=== PATIENT | female | born 1955 | race Two or more races ===

== ENCOUNTER 2016-12-15 13:52 | Emergency (ER) | payer OTHER ==
[~2016-12-15] VITALS: Ht 162.6 cm; Wt 81.6 kg
--- NOTE | ~2016-12-15 | CR181 ---
[facility] A Service of [facility] & [facility] RADIOLOGY TEXT RESULTS PATIENT: BELINDA HOLDER LOCATION: CFTX : 59 UNIT #: [id number] AGE: [address]: Alana Cloud SEX: F ORDER DR: [id number] [facility] [address]. [place], [place] [address] [id number] E MR#: [id number] #: [id number] NAME: BELINDA HOLDER : 1955 SEX: F STUDY DATE/TIME: 12/15/2016 15:08 UNIT: TX ROOM: STUDY DESCRIPTION: CR Lumbar Spine 2 or 3 Views Attending Physician: Alana Cloud P.A.-C. Ordering Physician: Alana Cloud P.A.-C. Primary Care Physician: Primary Care Physician No MEDICAL IMAGING REPORT This report is preliminary unless electronic signature is present EXAM 3 views lumbar spine INDICATIONS Back pain starting today. No known injury. FINDING There is some wedging deformity noted of the L5 vertebral body, chronicity is uncertain and potentially may reflect a chronic finding. Correlation with history of point tenderness is suggested. 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 No aggressive osseous abnormalities are seen. Sacroiliac joints appear well preserved. IMPRESSION Patient does have some wedging at the L5 vertebral body, age indeterminate. Correlation with history and point tenderness is suggested. CT may also be complimentary degenerative changes as noted above Dictated by... Linn Madsen M.D. THIS IS AN ELECTRONICALLY VERIFIED REPORT Linn Madsen M.D. at 12/16/2016 7:20 AM AFF/rnr TD: 12/15/2016 22:48 JOB #: [id number] MEDICAL IMAGING REPORT Page 1 of 1 COPY
--- NOTE | ~2016-12-15 | CT98 ---
[facility] A Service of [facility] & [facility] RADIOLOGY TEXT RESULTS PATIENT: BELINDA HOLDER LOCATION: CFTX : 59 UNIT #: [id number] AGE: [address]: Alana Cloud SEX: F ORDER DR: [id number] [facility] [address] [place], [place] [address] [id number] E MR#: [id number] Acc #: [id number] NAME: BELINDA OHLDER : 1955 SEX: F STUDY DATE/TIME: 12/15/2016 16:16 UNIT: [facility] ROOM: STUDY DESCRIPTION: CT Lumbar Spine Wo Cont Attending Physician: Alana Cloud P.A.-C. Ordering Physician: Alana Cloud P.A.-C. Primary Care Physician: Primary Care Physician No MEDICAL IMAGING REPORT This report is preliminary unless electronic signature is present EXAM CT lumbar spine without contrast HISTORY Right back pain and leg pain since yesterday. No injury. FINDINGS This CT exam was performed with one or more of the following radiation dose reduction techniques: Automatic exposure control, adjustment of mA and/or kV according to patient size, and iterative reconstruction. CT lumbar spine without contrast demonstrates four lumbar-type vertebrae, considered L1-L4. There is omho-jz-wfwiyqmt chronic compression of L4, with anterior wedging and approximately 25% loss of the mid and anterior L4 vertebral body height. No additional compression fracture. No disc space narrowing or lumbar subluxation. Fcog-dd-wpdipmgb multilevel degenerative and hypertrophic changes in the mid and lower lumbar spine, greater in the lower lumbar facet joints. At L1-2, there is mild diffuse degenerative disc bulging but no focal disc protrusion. At L2-3, there is gxuz-jt-dalmntgn diffuse disc bulging and mild bilateral facet and ligamentous hypertrophy with mild central canal narrowing. At L3-4, there is nbsa-nj-hdeqjsmb diffuse disc bulging and mild bilateral facet and ligamentous hypertrophy with very mild central canal narrowing. At L4-S1, there is moderate, diffuse disc bulging and broad-based marginal osteophyte, with moderate bilateral outlet foraminal narrowing. IMPRESSION 1. No acute finding. [facility]. [facility] A Service of [facility] & [facility] RADIOLOGY TEXT RESULTS PATIENT: BELINDA HOLDER LOCATION: [facility] : 59 UNIT #: [id number] AGE: [address]: Alana Cloud SEX: F ORDER DR: 2. Mild chronic compression fracture of L4, with four lumbar-type vertebrae noted. No lumbar subluxation. 3. Tesm-fu-cavyfcpe multilevel degenerative and hypertrophic changes, including multilevel diffuse degenerative disc bulging. Dictated by... Ashvin Vogel M.D. THIS IS AN ELECTRONICALLY VERIFIED REPORT Ashvin Vogel M.D. at 12/16/2016 11:41 PM DFL/stephanie TD: 12/16/2016 00:43 JOB #: [id number] MEDICAL IMAGING REPORT Page 1 of 1 COPY
[2016-12-15 15:03] LABS: URINE SOURCE CLEAN CATCH
[2016-12-15 15:19] LABS: URINE APPEARANCE CLEAR; URINE BILIRUBIN NEG (NEG); URINE BLOOD NEG (NEG); URINE COLOR YELLOW; URINE GLUCOSE NEG (NEG); URINE KETONE NEG (NEG); URINE LEUKOCYTE ESTERASE NEG (NEG); URINE NITRATE NEG (NEG); URINE PH 6.5 (5-8); URINE PROTEIN NEG (NEG); URINE SPECIFIC GRAVITY 1.006 (1.003-1.035); URINE UROBILINOGEN 0.2 MG/DL (NEG)
[2016-12-15 15:30] LABS: CULTURE INDICATED? NO
== END 2016-12-15 18:30 | disposition home or self-care (01) ==
LOC: CFTX 13:52 → CED 13:52 → CFTX 15:44
PROVIDERS: Physician Assistant
DX: M51.36 Other intervertebral disc degeneration, lumbar region (principal); Z90.710 Acquired absence of both cervix and uterus
CPT/HCPCS: 72100; 72131; 81003; 96372; 99284; J1885